=== PATIENT | male | born 1950 | race Caucasian/White ===

== ENCOUNTER 2020-02-22 08:24 | Outpatient (REF) | payer MEDICARE, SELFPAY ==
[2020-02-22 11:54] LABS: Alanine Aminotransferase 10 U/L (0-40); Albumin Level 4.3 g/dL (3.5-5.0); Alkaline Phosphatase 79 U/L (39-117); Anion Gap 14 (12-20); Aspartate Amino Transferase 22 U/L (5-37); Bilirubin Total 0.9 mg/dL (0.0-1.0); Blood Urea Nitrogen 16 mg/dL (9-16); Calcium 9.1 mg/dL (8.4-10.2); Carbon Dioxide 24 mmol/L (22-29); Chloride 104 mmol/L (96-108); Cholesterol 241 mg/dL; Estimated Glomerular Filt Rate > 60; Glucose Fasting 99 mg/dL (60-99); HDL Cholesterol 64 mg/dL; LDL Cholesterol Calculated 165 mg/dl; Potassium 4.5 mmol/l (3.3-5.1); Sodium 137 mmol/L (135-145); Total Protein 7.1 g/dL (6.5-8.0); Triglycerides 62 mg/dL
[2020-02-22 12:02] LABS: Prostate Specific Antigen 0.93 ng/mL (<0.05-4.0)
== END 2020-02-22 08:25 | disposition home or self-care (01) ==
LOC: HO.MANLDS 08:24
PROVIDERS: PCP Internal Medicine; Visit Provider Internal Medicine
DX: E78.00 Pure hypercholesterolemia, unspecified (principal)
CPT/HCPCS: 80053; 80061; 84153

== ENCOUNTER 2020-04-20 12:36 | Outpatient (REF) | payer MEDICARE, SELFPAY | END 2020-04-20 12:37 | disposition home or self-care (01) | LOC: HO.LAB 12:36 | PROVIDERS: Visit Provider Internal Medicine | DX: Z20.822 Contact with and (suspected) exposure to COVID-19 (principal) | CPT/HCPCS: 36415; C9803; U0003; U0005 ==

== ENCOUNTER 2020-04-25 07:41 | Outpatient (REF) | payer MEDICARE, SELFPAY | END 2020-04-25 07:42 | disposition home or self-care (01) | LOC: HO.LAB 07:41 | PROVIDERS: Visit Provider Internal Medicine | DX: Z20.822 Contact with and (suspected) exposure to COVID-19 (principal) | CPT/HCPCS: 36415; C9803; U0003; U0005 ==

== ENCOUNTER 2020-09-05 08:23 | Outpatient (REF) | payer MEDICARE, SELFPAY ==
[2020-09-05 11:26] LABS: Estimated Average Glucose 103 mg/dL; Hemoglobin A1c % 5.2 %
[2020-09-05 11:43] LABS: Cholesterol 257 mg/dL; HDL Cholesterol 70 mg/dL; LDL Cholesterol Calculated 175 mg/dl; Triglycerides 62 mg/dL
== END 2020-09-05 08:24 | disposition home or self-care (01) ==
LOC: HO.MANLDS 08:23
PROVIDERS: PCP Internal Medicine; Visit Provider Internal Medicine
DX: E78.00 Pure hypercholesterolemia, unspecified (principal); R73.01 Impaired fasting glucose
CPT/HCPCS: 36415; 80061; 83036

== ENCOUNTER 2020-12-27 07:45 | Outpatient (REF) | payer MEDICARE, SELFPAY ==
[2020-12-27 11:05] LABS: Hemoglobin 15.6 g/dl (14.0-18.0); Mean Corpuscular HGB Conc 33.9 g/dl (31.0-36.0); Mean Corpuscular Hemoglobin 32.6 pg (27.0-33.0); Mean Corpuscular Volume 96.2 fL (80-98); Mean Platelet Volume 10.1 fL (9.4-12.4); Platelet Count 244 X10*3/uL (160-400); Red Blood Count 4.78 X10*6/uL (4.60-5.80); Red Cell Distribution Width 12.4 % (11.0-16.0); White Blood Count 6.6 X10*3/uL (4.8-10.8)
[2020-12-27 11:17] LABS: Estimated Average Glucose 105 mg/dL; Hemoglobin A1c % 5.3 %
[2020-12-27 11:39] LABS: Alanine Aminotransferase 12 U/L (0-40); Albumin Level 4.4 g/dL (3.5-5.0); Alkaline Phosphatase 85 U/L (39-117); Anion Gap 12 (12-20); Aspartate Amino Transferase 23 U/L (5-37); Bilirubin Total 1.4 mg/dL (0.0-1.0); Blood Urea Nitrogen 14 mg/dL (9-16); Calcium 9.4 mg/dL (8.4-10.2); Carbon Dioxide 27 mmol/L (22-29); Chloride 103 mmol/L (96-108); Cholesterol 236 mg/dL; Estimated Glomerular Filt Rate > 60; Glucose Fasting 101 mg/dL (60-99); HDL Cholesterol 57 mg/dL; LDL Cholesterol Calculated 165 mg/dl; Potassium 4.5 mmol/L (3.3-5.1); Sodium 137 mmol/L (135-145); Total Protein 7.1 g/dL (6.5-8.0); Triglycerides 70 mg/dL
[2020-12-27 11:55] LABS: Prostate Specific Antigen 2.03 ng/mL (<0.05-4.0)
== END 2020-12-27 07:46 | disposition home or self-care (01) ==
LOC: HO.MANLDS 07:45
PROVIDERS: PCP Internal Medicine; Visit Provider Internal Medicine
DX: Z12.5 Encounter for screening for malignant neoplasm of prostate (principal); E78.00 Pure hypercholesterolemia, unspecified; R73.01 Impaired fasting glucose
CPT/HCPCS: 36415; 80053; 80061; 83036; 84153; 85027

== ENCOUNTER 2022-01-08 09:42 | Outpatient (REF) | payer MEDICARE, SELFPAY ==
[2022-01-08 11:38] LABS: Estimated Average Glucose 105 mg/dL; Hemoglobin A1c % 5.3 %
[2022-01-08 14:20] LABS: Cholesterol 267 mg/dL; HDL Cholesterol 62 mg/dL; LDL Cholesterol Calculated 194 mg/dl; Triglycerides 56 mg/dL
[2022-01-08 14:43] LABS: Prostate Specific Antigen 1.77 ng/mL (<0.05-4.0)
== END 2022-01-08 09:43 | disposition home or self-care (01) ==
LOC: HO.MANLDS 09:42
PROVIDERS: Visit Provider Internal Medicine
DX: Z12.5 Encounter for screening for malignant neoplasm of prostate (principal); E78.00 Pure hypercholesterolemia, unspecified; R73.01 Impaired fasting glucose
CPT/HCPCS: 36415; 80061; 83036; 84153

== ENCOUNTER 2022-07-09 11:12 | Outpatient (REF) | payer MEDICARE, SELFPAY ==
[2022-07-09 13:12] LABS: Estimated Average Glucose 103 mg/dL; Hemoglobin A1c % 5.2 %
[2022-07-09 13:42] LABS: Cholesterol 247 mg/dL; HDL Cholesterol 59 mg/dL; LDL Cholesterol Calculated 176 mg/dl; Triglycerides 62 mg/dL
[2022-07-09 13:48] LABS: Prostate Specific Antigen 1.05 ng/mL (<0.05-4.0)
== END 2022-07-09 11:13 | disposition home or self-care (01) ==
LOC: HO.MANLDS 11:12
PROVIDERS: Visit Provider Internal Medicine
DX: Z12.5 Encounter for screening for malignant neoplasm of prostate (principal); E78.00 Pure hypercholesterolemia, unspecified; R73.01 Impaired fasting glucose
CPT/HCPCS: 36415; 80061; 83036; 84153

== ENCOUNTER 2023-02-12 09:10 | Outpatient (REF) | payer MEDICARE, SELFPAY ==
[2023-02-12 13:22] LABS: MANUAL DIFF FLAG NO
[2023-02-12 13:44] LABS: Basophils Percent Auto 0.7 % (0-2); Eosinophils Absolute Auto 0.1 X10*3/uL (0.0-0.4); Eosinophils Percent Auto 1.8 % (0-4); Hematocrit 44.2 % (42.0-52.0); Hemoglobin 14.7 g/dl (14.0-18.0); Imm Gran Abs Auto 0.01 X10*3/uL (0.00-0.03); Imm Gran Pct Auto 0.2 % (0.0-0.4); Lymphocytes Absolute Auto 1.7 X10*3/uL (1.2-4.9); Lymphocytes Percent Auto 31.8 % (20-40); Mean Corpuscular HGB Conc 33.3 g/dl (31.0-36.0); Mean Corpuscular Hemoglobin 32.5 pg (27.0-33.0); Mean Corpuscular Volume 97.8 fL (80.0-98.0); Mean Platelet Volume 10.5 fL (9.4-12.4); Monocytes Absolute Auto 0.5 X10*3/uL (0.1-1.2); Monocytes Percent Auto 9.7 % (2-11); Neutrophils Absolute Auto 3.1 x10*3/uL (2.0-8.3); Neutrophils Percent Auto 55.8 % (45-73); Platelet Count 257 X10*3/uL (160-400); Red Blood Count 4.52 X10*6/uL (4.60-5.80); Red Cell Distribution Width 12.8 % (11.0-16.0); White Blood Count 5.5 X10*3/uL (4.8-10.8)
[2023-02-12 14:07] LABS: Alanine Aminotransferase 27 U/L (0-40); Alkaline Phosphatase 81 U/L (39-117); Anion Gap 10 (12-20); Aspartate Amino Transferase 31 U/L (5-37); Bilirubin Total 0.7 mg/dL (0.0-1.0); Blood Urea Nitrogen 16 mg/dL (9-16); Calcium 9.2 mg/dL (8.4-10.2); Carbon Dioxide 29 mmol/L (22-29); Chloride 104 mmol/L (96-108); Cholesterol 261 mg/dL (<200); Estimated Glomerular Filt Rate > 60; Glucose Random 100 mg/dL (60-115); HDL Cholesterol 57 mg/dL (>40); LDL Cholesterol Calculated 190 mg/dL (<100); Potassium 4.4 mmol/L (3.3-5.1); Sodium 139 mmol/L (135-145); Total Protein 6.9 g/dL (6.5-8.0); Triglycerides 74 mg/dL (<150)
== END 2023-02-12 09:11 | disposition home or self-care (01) ==
LOC: HO.MANLDS 09:10
PROVIDERS: Visit Provider Physician Assistant
DX: E78.2 Mixed hyperlipidemia (principal)
CPT/HCPCS: 36415; 80053; 80061; 85025

== ENCOUNTER 2023-08-01 09:32 | Outpatient (REF) | payer MEDICARE, SELFPAY ==
[2023-08-01 13:35] LABS: Basophils Percent Auto 0.4 % (0-2); Eosinophils Absolute Auto 0.1 X10*3/uL (0.0-0.4); Eosinophils Percent Auto 1.6 % (0-4); Hematocrit 44.4 % (42.0-52.0); Hemoglobin 14.9 g/dl (14.0-18.0); Imm Gran Abs Auto 0.02 X10*3/uL (0.00-0.03); Imm Gran Pct Auto 0.4 % (0.0-0.4); Lymphocytes Absolute Auto 1.6 X10*3/uL (1.2-4.9); Lymphocytes Percent Auto 31.8 % (20-40); MANUAL DIFF FLAG SCAN; Mean Corpuscular HGB Conc 33.6 g/dl (31.0-36.0); Mean Corpuscular Volume 98.2 fL (80.0-98.0); Mean Platelet Volume 10.9 fL (9.4-12.4); Monocytes Absolute Auto 0.5 X10*3/uL (0.1-1.2); Neutrophils Absolute Auto 2.7 x10*3/uL (2.0-8.3); Neutrophils Percent Auto 54.8 % (45-73); Platelet Count 235 X10*3/uL (160-400); Red Blood Count 4.52 X10*6/uL (4.60-5.80); Red Cell Distribution Width 13.1 % (11.0-16.0); SCAN SMEAR FLAG 1; White Blood Count 4.9 X10*3/uL (4.8-10.8)
[2023-08-01 14:17] LABS: SLIDE REVIEW VERIFIED
[2023-08-01 14:18] LABS: Alanine Aminotransferase 24 U/L (0-40); Alkaline Phosphatase 70 U/L (39-117); Anion Gap 15 (12-20); Aspartate Amino Transferase 30 U/L (5-37); Bilirubin Total 0.5 mg/dL (0.0-1.0); Blood Urea Nitrogen 20 mg/dL (9-16); Calcium 8.9 mg/dL (8.4-10.2); Carbon Dioxide 25 mmol/L (22-29); Chloride 107 mmol/L (96-108); Cholesterol 153 mg/dL (<200); Estimated Glomerular Filt Rate > 60; Glucose Random 87 mg/dL (60-115); HDL Cholesterol 44 mg/dL (>40); LDL Cholesterol Calculated 99 mg/dL (<100); Potassium 4.6 mmol/L (3.3-5.1); Sodium 142 mmol/L (135-145); Total Protein 6.8 g/dL (6.5-8.0); Triglycerides 50 mg/dL (<150)
[2023-08-01 14:21] LABS: Vitamin D 25-OH Total 31.9 ng/mL (>30)
[2023-08-01 14:25] LABS: Prostate Specific Antigen 0.72 ng/mL (<0.05-4.0); Vitamin B12 354 pg/mL (200-900)
== END 2023-08-01 09:33 | disposition home or self-care (01) ==
LOC: HO.MANLDS 09:32
PROVIDERS: Visit Provider Internal Medicine
DX: Z12.5 Encounter for screening for malignant neoplasm of prostate (principal); E78.2 Mixed hyperlipidemia
CPT/HCPCS: 36415; 80053; 80061; 82306; 82607; 84153; 85025

== ENCOUNTER 2024-02-10 13:24 | Outpatient (REF) | payer MEDICARE, SELFPAY ==
[2024-02-10 13:27] LABS: MANUAL DIFF FLAG NO
[2024-02-10 14:50] LABS: Basophils Percent Auto 0.8 % (0-2); Eosinophils Absolute Auto 0.1 X10*3/uL (0.0-0.4); Eosinophils Percent Auto 1.7 % (0-4); Hematocrit 43.2 % (42.0-52.0); Hemoglobin 15.1 g/dl (14.0-18.0); Imm Gran Abs Auto 0.04 X10*3/uL (0.00-0.03); Imm Gran Pct Auto 0.8 % (0.0-0.4); Lymphocytes Absolute Auto 1.3 X10*3/uL (1.2-4.9); Lymphocytes Percent Auto 28.3 % (20-40); Mean Corpuscular Hemoglobin 33.9 pg (27.0-33.0); Mean Corpuscular Volume 97.1 fL (80.0-98.0); Mean Platelet Volume 10.4 fL (9.4-12.4); Monocytes Absolute Auto 0.6 X10*3/uL (0.1-1.2); Monocytes Percent Auto 11.8 % (2-11); Neutrophils Absolute Auto 2.7 x10*3/uL (2.0-8.3); Neutrophils Percent Auto 56.6 % (45-73); Platelet Count 246 X10*3/uL (160-400); Red Blood Count 4.45 X10*6/uL (4.60-5.80); Red Cell Distribution Width 13.1 % (11.0-16.0); White Blood Count 4.7 X10*3/uL (4.8-10.8)
[2024-02-10 15:14] LABS: Vitamin D 25-OH Total 47.5 ng/mL (>30)
[2024-02-10 15:26] LABS: Folate 19.8 ng/mL (> or = 4.0); Vitamin B12 362 pg/mL (200-900)
[2024-02-15 04:39] LABS: Methylmalonic Acid 176 nmol/L (69-390)
== END 2024-02-10 13:25 | disposition home or self-care (01) ==
LOC: HO.MANLNP 13:24
PROVIDERS: Visit Provider Physician Assistant
DX: E53.8 Deficiency of other specified B group vitamins (principal); E55.9 Vitamin D deficiency, unspecified
CPT/HCPCS: 36415; 82306; 82607; 82746; 83921; 85025